=== PATIENT | female | born 1980 | race Caucasian/White ===

== ENCOUNTER 2018-12-24 04:53 | Emergency (ER) | payer BC, OTHER ==
[2018-12-24 05:11] VITALS: PULSE 70; RESP 16; TEMP 97.2; O2SAT 100
[2018-12-24] MEDS ORDERED: SULFAMETHOXAZOLE/TRIMETHOPRI 800/160 MG PO ONE (05:11)
[2018-12-24] MEDS ORDERED: SULFAMETHOXAZOLE/TRIMETHOPRI 800/160 MG ONE (05:20)
[2018-12-24 05:33] VITALS: BP 130/95
[2018-12-24 05:42] LABS: APPEARANCE,URINE SL CLOUDY; COLOR,URINE PINK TINGED; GLUCOSE, URINE (UA) NEGATIVE (NEGATIVE); KETONES,URINE NEGATIVE (NEGATIVE); OCCULT BLOOD,URINE 3+ (NEG-TRACE); PH,URINE 6.5
[2018-12-24 05:43] LABS: BILIRUBIN,URINE 1+ (NEGATIVE); LEUKOCYTE ESTERASE ,URINE TRACE (NEGATIVE); NITRATE,URINE NEGATIVE (NEGATIVE)
[2018-12-24 05:55] LABS: ICTOTEST,URINE QNS (NEGATIVE)
== END 2018-12-24 05:32 | disposition home or self-care (01) ==
LOC: ED 04:53
DX: N39.0 Urinary tract infection, site not specified (principal)
CPT/HCPCS: 81003; 87077; 87088; 87186; 99282; A9270-GY

== ENCOUNTER 2019-03-01 01:14 | Emergency (ER) | payer BC ==
[2019-03-01 01:15] VITALS: O2SAT 100
[2019-03-01 01:19] VITALS: BP 150/99; PULSE 71; RESP 18; TEMP 97
[2019-03-01] MEDS ORDERED: AUGMENTIN(FRIDGE) 400 MG/5 ML PO ONE (01:51)
[2019-03-01 04:32] LABS: APPEARANCE,URINE Clear; BILIRUBIN,URINE NEGATIVE (NEGATIVE); COLOR,URINE Light yellow; GLUCOSE, URINE (UA) NEGATIVE (NEGATIVE); KETONES,URINE NEGATIVE (NEGATIVE); LEUKOCYTE ESTERASE ,URINE 1+ (NEGATIVE); NITRATE,URINE NEGATIVE (NEGATIVE); OCCULT BLOOD,URINE 2+ (NEG-TRACE); UROBILINOGEN,URINE 0.2 (0.2-1.0 EU)
[2019-03-01 04:37] LABS: BACTERIA 1+ (< 1+); CRYSTALS NEGATIVE (0-3 AVE/HPF); RBC,URINE 0-2 (0-3AV/HPF)
== END 2019-03-01 02:08 | disposition home or self-care (01) ==
LOC: ED 01:14
DX: N39.0 Urinary tract infection, site not specified (principal); R35.0 Frequency of micturition; R39.15 Urgency of urination; R30.9 Painful micturition, unspecified
CPT/HCPCS: 81001; 87077; 87088; 87186; 99282; A9270-GY